=== PATIENT | female | born 1965 | race Asian ===

== ENCOUNTER 2022-09-04 14:48 | Emergency (ER) | payer BC, OTHER ==
[~2022-09-04] VITALS: Ht 162.6 cm; Wt 70.4 kg
[2022-09-04 15:38] VITALS: BP 194/110
[2022-09-04] MEDS ORDERED: KETOROLAC TROMETH 60MG/2ML VIAL IM ONE (15:45)
[2022-09-04] MEDS ORDERED: HYDR-4902 PO (17:59)
[2022-09-04] MEDS ORDERED: IBUP600T27 PO (17:59)
== END 2022-09-04 18:10 | disposition home or self-care (01) ==
LOC: EDBD 14:48 → ER 14:48
DX: S16.1XXA Strain of muscle, fascia and tendon at neck level, initial encounter (principal); V49.9XXA Car occupant (driver) (passenger) injured in unspecified traffic accident, initial encounter; Y93.89 Activity, other specified; Y92.410 Unspecified street and highway as the place of occurrence of the external cause; Y99.8 Other external cause status
CPT/HCPCS: 71046; 72040; 93005; 96372; 99284; J1885